=== PATIENT | female | born 1960 | race Caucasian/White ===

== ENCOUNTER → 2020-09-12 12:08 | Outpatient (BNVA) | payer BC, SELFPAY | PROVIDERS: Family Provider Nurse Practitioner Family; Referring Provider Family Medicine; Visit Provider Orthopaedic Surgery | DX: Z01.812 Encounter for preprocedural laboratory examination (principal); Z20.828 Contact with and (suspected) exposure to other viral communicable diseases; S52.021A Displaced fracture of olecranon process without intraarticular extension of right ulna, initial encounter for closed fracture | CPT/HCPCS: 87635 ==

== ENCOUNTER 2020-09-16 11:03 | Day surgery (SDC) | payer BC, SELFPAY ==
[2020-09-13 10:37] VITALS: BMI 20.1
[2020-09-16] VITALS (10 sets, daily range): BP systolic 118–173; BP diastolic 41–92; PULSE 58–97; RESP 16–20; TEMP 36.1–37.2; O2SAT 94–100
--- NOTE | 2020-09-16 | SCC_ITS ---
Procedure Done: ORIF right olecranon fracture 83.6 seconds of fluoroscopic guidance, for a cumulative dose of 1.54 mGy, was provided to Dr. Moy by the radiology department. C-arm images of the right elbow were saved for the patient's permanent record. [facility]
--- NOTE | 2020-09-16 | XR_ITS ---
WS: [id number] INTRAOPERATIVE TECHNIQUE: 5 Spot fluoroscopic images for intraoperative purposes. FLUOROSCOPY TIME: 83.6 seconds CLINICAL INFORMATION: RIGHT OLECRONON FRACTURE COMPARISON: None. FINDINGS: Intraoperative changes plate and screw fixation proximal ulna and olecranon. XR/XR elbow RT min 3V* [id number] IMPRESSION: Images obtained for intraoperative purposes.
[2020-09-16] MEDS: sodium chloride 0.9% 1,000 ML 30 ML IV (11:42)
--- NOTE | 2020-09-16 12:29 | ANES.PREANE2 ---
Pre-Anesthetic Assessment Pre-Anesthetic Assessment: Height/Weight: Height 1.52 m Weight 46.72 kg Temp Pulse Resp BP Pulse Ox 98.1 F 58 L 18 147/78 95 09/16/20 12:06 09/16/20 12:06 09/16/20 12:06 09/16/20 12:06 09/16/20 12:06 Preop Diagnosis: right olecranon fx Proposed Procedure: Operation Date: 09/16/20 13:40 Proposed Procedures p ORIF Elbow 20894 S52.021A(Right) - Georges Moy, DO Was Beta Saurabh taken within 24 hours: N/A Last intake: Intake Last Liquid Date 09/15/20 Last Liquid Time 23:00 Last Solid Date 09/15/20 Last Solid Time 23:00 Social: Social History: Tobacco and No alcohol Exam: Pre-Anes Outpt Exam: alert, oriented x 3, clear to auscultation bilaterally and regular rate & rhythm Airway: Submandibular: WNL Cervical ROM: WNL MP: 1 Dentition: False History/ROS: No significant complaints Pulmonary: Pulmonary: COPD CV/HEM: CV/HEM: None reported : : None reported Hepatic: Hepatic: None reported GI: GI: None reported Metabolic: Metabolic: None reported Musc/skel: Comments: Cervical Pain Neuropsych: Neuropsych: None reported Anesthetic Plan: ASA status: 3 Anesthesia: General Meds/Allergies Current Medications: Current Medications Generic Name Dose Route Start Last Admin Trade Name Freq PRN Reason Stop Dose Admin Sodium Chloride 1,000 mls @ 30 ml s/hr 09/16/20 11:15 09/16/20 11:42 Sodium Chloride 0.9% IV 09/17/20 11:14 30 mls/hr .Q24H CALVIN Administration PFSH Anesthesia PFSH: Social History Smoking and tobacco status: former smoker Alcohol intake: never Sexually active: Yes Current gender identity: Female Data Anesthesia Cardiac Studies: No Data to Display
--- NOTE | 2020-09-16 12:44 | W.PM.OPSUD ---
Surgery/Procedure H&P Update DATE OF PROCEDURE: September 16, 2020 DATE H&P PERFORMED: 09/11/20 H&P UPDATE INFORMATION: I have reviewed H&P completed within last 30 days, I have examined patient prior to procedure and No changes to prior documentation PREOP DIAGNOSIS: right olecranon fx PLANNED PROCEDURE: Operation Date: 09/16/20 13:40 Proposed Procedures p ORIF Elbow 12798 S52.021A(Right) - Georges Moy DO
--- NOTE | 2020-09-16 14:15 | PM.OP ---
Operative Report Date of procedure: September 16, 2020 Pre-op Diagnosis: right olecranon fx Post-op diagnosis: same Procedure Done: ORIF right Olecranon fracture
--- NOTE | 2020-09-16 14:16 | PM.OP ---
Operative Report Date of procedure: September 16, 2020 Pre-op Diagnosis: right olecranon fx Procedure Done: ORIF right olecranon fracture Surgeon: Georges Moy Anesthesia: General Estimated blood loss (mL): 5 Condition: stable Disposition: PACU Procedure: ORIF right olecranon fracture Patient is brought to the operative suite after undergoing his he is placed in lateral decubitus position all areas impingement well-padded patient's prepped and draped normal sterile fashion. Incision is made over the right posterior aspect of the elbow. Olecranon was exposed it had a left comminuted pieces but there was one major piece. Was able to reduce this back to the distal piece. Once this was reduced to K wires used to hold in position then the Aarti olecranon plate was placed 2 screws were placed proximal to screws placed distal. Fiber wire was weaved to try to hold the remaining comminuted pieces together. Wounds irrigated AP lateral fluoroscopy ensured that the fracture and hardware improved position wounds were irrigated and patient was closed in a layered fashion with 0 Vicryl 2-0 Vicryl and nylon suture sterile dressings applied patient placed in a posterior splint transferred to the PACU in stable condition.
[2020-09-16] MEDS: meperidine 50 mg/mL INJ 12.5 MG IVP (14:51)
[2020-09-16] MEDS: HYDROcodone-acetaminophen 5-325 mg Tablet 1 TAB PO (15:10)
--- NOTE | 2020-09-16 16:59 | ANE.PACU2 ---
Inpatient post-anesthesia follow up: Airway intact: Yes Vital signs: Temperature 98.1 F Pulse Rate 80 Respiratory Rate 16 Blood Pressure 129/66 Pulse Oximetry 94 Oxygen Delivery Me thod Room Air Oxygen Flow Rate 6 Fraction of Inspir ed Oxygen Hydration adequate: Yes Nausea and vomiting: No Pain level: 3 Mental status: Baseline
== END 2020-09-16 16:00 | disposition home or self-care (01) ==
PROVIDERS: Visit Provider Orthopaedic Surgery
PROC: (CPT 24685; principal; 2020-09-16 13:40)
DX: S52.021A Displaced fracture of olecranon process without intraarticular extension of right ulna, initial encounter for closed fracture (principal); X58.XXXA Exposure to other specified factors, initial encounter; J44.9 Chronic obstructive pulmonary disease, unspecified; Z87.891 Personal history of nicotine dependence
CPT/HCPCS: 24685; 73080; 76000; 96365; C1713; J0360; J0690; J1100; J2175; J2405; J2704; J3010; J3490; J7030

== ENCOUNTER 2020-10-30 04:12 | Emergency (ER) | payer BC, SELFPAY ==
[2020-10-30 04:13] VITALS: BP 169/101; PULSE 72; RESP 16; TEMP 36.4; O2SAT 94; BMI 19.5
--- NOTE | 2020-10-30 04:28 | XR_ITS ---
WS: [id number] Lumbar spine, portable views, AP, L5-S1 spot, lateral, and both obliques, 10/30/2020 Clinical Data: pain Comparison: Lumbar spine, 06/19/2010. Findings: No compression fractures or subluxation is seen. There is degenerative disc narrowing at L5-S1.. The transverse processes and SI joints are normal. The oblique films demonstrate no spondylolysis.. XR/XR lumbar spine min 4V [id number] Impression: 1. Degenerative disc disease at L5-S1. 2. No spondylolysis.
--- NOTE | 2020-10-30 04:28 | XR_ITS ---
WS: [id number] Pelvis, AP portable supine, 10/30/2020 Clinical Data: pain Comparison: Pelvis, 04/29/2010. Findings: No fractures or dislocations are seen. The SI joints and pubic symphysis are intact. The soft tissues are not remarkable. No bone destruction or erosion is seen. XR/XR pelvis 1-2V* [id number] Impression: Negative for fracture.
--- NOTE | 2020-10-30 04:29 | W.ED.GENADLT ---
HPI - General Adult General: Chief complaint: Back Pain/Injury Stated complaint: GROIN PAIN Time Seen by Provider: 10/30/20 04:16 Source: patient Limitations: no limitations History of Present Illness: HPI narrative: Complaining of low back pain that radiates into the right groin and thigh. Denies any injury. Denies any fever. Denies any other problems with the right lower extremity except for occasional tingling. She has no tingling now. She is ambulatory. She states she recently had right elbow surgery on September 16. Onset (ago): day(s) (3) Location: back and right Radiation: other (Radiates from the low back to right thigh) Severity: moderate Quality: aching and sharp Pain Consistency: constant Relieving factors: none Exacerbating factors: none Associated symptoms: Reports other (No abdominal pain. No chest pain. No shortness of breath. No headache.); Deny chest pain, dyspnea, fevers/chills, headache(s), malaise, nausea, rash, palpitations, vomiting or weakness Treatments prior to arrival: other (Took hydrocodone at home without much relief.) Review of Systems Const: Denies: malaise Eyes: Denies: change in vision ENMT: Denies: throat pain Card: Denies: chest pain or palpitations Resp: Denies: dyspnea or wheezing GI: Denies: abdominal pain, nausea or vomiting : Denies: flank pain Musc: Reports: back pain and extremity pain; Denies: neck pain, extremity swelling or joint pain Skin/Breast: Denies: rash Neuro: Denies: headache(s) or numbness in extremities Psych: Denies: anxiety [place]/Lymph: Denies: enlarged lymph nodes PFSH ED PFSH: Social History Smoking and tobacco status: former smoker Alcohol intake: never Sexually active: Yes Current gender identity: Female Physical Exam Const: COMMON NORMALS: no acute distress, patient oriented x3, no limitations and well nourished EXAM LIMITATIONS: altered mental status GENERAL APPEARANCE: cooperative HENMT: COMMON NORMALS: normocephalic and atraumatic HEAD & SCALP: normocephalic and atraumatic FACE & SINUS: normal facial exam Eye: COMMON NORMALS: EOMs intact bilaterally Neck/C-Spine: COMMON NORMALS: full ROM, no lymphadenopathy, supple and no meningeal signs GENERAL: Yes normal visual inspection Lymph: LYMPHATIC: no lymphadenopathy noted Chest: COMMONS NORMALS: normal inspection of the chest and normal palpation of entire chest wall CHEST: No Ecchymosis present and No rash Resp: COMMON NORMALS: normal respiratory effort, No retractions and clear to auscultation bilaterally EFFORT & INSPECTION: No respiratory distress AUSCULTATION: clear to auscultation bilaterally Cardio: COMMON NORMALS: regular rate, regular rhythm and Peripheral pulses 2+ throughout JUGULAR VENOUS DISTENTION: no JVD RATE: regular rate RHYTHM: regular rhythm PERIPHERAL PULSES: Peripheral pulses 2+ throughout GI: COMMON NORMALS: Normal to inspection, nondistended, normoactive bowel sounds present and non-tender : COMMON NORMALS: Yes no CVA tenderness BLADDER/KIDNEY EXAM: Yes no CVA tenderness and No CVA tenderness Back/Pelvis: COMMON NORMALS: no CVA tenderness GENERAL BACK: No CVA tenderness LUMBAR SPINE/LOWER BACK: Yes lumbar ROM normal, No pain with ROM and Yes lumbar spinal tenderness (Mild reproducible pain along the paraspinous muscles of the lower L/S) PELVIS: Yes buttocks normal OTHER: Reproducible pain with palpation along the right lower lumbar spine paraspinous muscles right sacroiliac joint and right groin and thigh. No evidence of induration, cellulitis, rash, zoster, or cyanosis. No clubbing or edema. Right femoral pulse right posterior tibial and right dorsalis pedis pulses are all normal. Normal capillary refill. Nursing assessment reviewed. Extremity: COMMON NORMALS: normal to inspection, full ROM and capillary refill normal Neuro: COMMON NORMALS: patient oriented x3, CN's II-XII intact bilaterally, no focal motor deficits and no sensory deficits noted MENINGEAL SIGNS: Yes no meningeal signs Psych: COMMON NORMALS: mental status grossly normal and Normal thought process present THOUGHT PROCESS: Normal thought process present Skin: COMMON NORMALS: no rashes or lesions noted and no wounds GENERAL SKIN EXAM: no rashes or lesions noted Course Vital Signs: Vital signs: Vital Signs Temperature 97.5 F L 10/30/20 04:13 Pulse Rate 72 10/30/20 04:13 Respiratory Rate 16 10/30/20 04:13 Blood Pressure 169/101 10/30/20 04:13 Pulse Oximetry 94 10/30/20 04:13 MDM - General Adult MDM Narrative: Medical decision making narrative: Nursing assessment reviewed 0500: Blood pressure 200/87. Patient still has pain in her lower back. Imaging Data^: Xray Ortho: Attestation: I personally reviewed and interpreted this imaging study as follows: My impression: Lumbar spine series shows degenerative disc disease at L4-L5 level likely causing her sciatica. Pelvis x-ray appears normal. Critical Care Time Critical Care Time: Critical Care Time: Yes Total Critical Care Time: 35 Attestation: Care of hypertensive urgency with IV labetalol Discharge Plan Discharge Patient Disposition: Home Clinical Impression: Hypertensive urgency, Lumbar radiculopathy Sciatica Qualifiers: Laterality: right Qualified Code(s): M54.31 - Sciatica, right side Degenerative joint disease (DJD) of lumbar spine Qualifiers: Spinal osteoarthritis complication: with radiculopathy Qualified Code(s): M47.26 - Other spondylosis with radiculopathy, lumbar region Condition: Stable Prescriptions: New oxycodone 5 mg capsule 5 mg PO Q6H PRN (Reason: pain) Qty: 10 RF: 0 lisinopril 10 mg tablet 10 mg PO DAILY Qty: 30 RF: 0 No Action albuterol sulfate 90 mcg/actuation HFA aerosol inhaler See Rx Instructions .ROUTE .COMPLEX Qty: 6.7 RF: 0 hydrocodone-acetaminophen 5-325 mg tablet 1 tab PO Q6H PRN (Reason: pain) 7 Days Qty: 60 RF: 0 hydrocodone-acetaminophen 5-325 mg tablet 1 - 2 tab PO .Q4-6H PRN (Reason: pain) 7 Days Qty: 40 RF: 0 ibuprofen 400 mg tablet 400 mg PO Q6H RF: 0 Discharge Orders: Discharge ED (Routine); Ordered 10/30/20 Ordered By: Manjeet Underwood Discharge Diet: Advance as tolerated Discharge Activity: Resume usual activity Patient Instructions: Opioid Safety Activity Restrictions/Additional Instructions: Follow-up with your family doctor soon for recheck.Do not combine hydrocodone and oxycodone. Coding Level of Care Code ED [employer] [facility] Exam Comprehensive
[2020-10-30] MEDS: labetalol 5 mg/mL SDV 20mL 10 MG IVP (05:20)
[2020-10-30] MEDS: HYDROmorphone 1 mg/mL INJ 1 mL 0.5 MG IVP (05:21)
[2020-10-30 05:24] VITALS: BP 200/87; PULSE 74; RESP 19; O2SAT 94
[2020-10-30 05:29] VITALS: BP 141/78; PULSE 62; RESP 19; O2SAT 96
[2020-10-30 06:46] VITALS: BP 171/87; PULSE 66; RESP 18; O2SAT 100
== END 2020-10-30 06:46 | disposition home or self-care (01) ==
PROVIDERS: Emergency Provider Family Medicine
DX: I16.0 Hypertensive urgency (principal); M54.16 Radiculopathy, lumbar region; M54.31 Sciatica, right side; M47.26 Other spondylosis with radiculopathy, lumbar region; Z87.891 Personal history of nicotine dependence
CPT/HCPCS: 72110; 72170; 96374; 96375; 99284; J1170; J3490

== ENCOUNTER → 2020-11-04 08:19 | Outpatient (BNVA) | payer BC, SELFPAY | PROVIDERS: Visit Provider Registered Nurse | DX: R39.9 Unspecified symptoms and signs involving the genitourinary system (principal) | CPT/HCPCS: 81000; 87070; 87205 ==

== ENCOUNTER → 2020-11-07 14:56 | Outpatient (BNVA) | payer BC, SELFPAY | PROVIDERS: Visit Provider Orthopaedic Surgery | DX: Z48.89 Encounter for other specified surgical aftercare (principal) | CPT/HCPCS: 73080 ==

== ENCOUNTER → 2020-12-04 10:49 | Outpatient (BNVA) | payer BC, SELFPAY | PROVIDERS: PCP Registered Nurse; Visit Provider Registered Nurse | DX: B37.3 Candidiasis of vulva and vagina (principal); N76.4 Abscess of vulva; N76.0 Acute vaginitis; B96.89 Other specified bacterial agents as the cause of diseases classified elsewhere | CPT/HCPCS: 87070; 87205 ==

== ENCOUNTER → 2020-12-19 13:59 | Outpatient (BNVA) | payer BC, SELFPAY | PROVIDERS: PCP Registered Nurse; Visit Provider Orthopaedic Surgery | DX: Z48.89 Encounter for other specified surgical aftercare (principal) | CPT/HCPCS: 73080 ==

== ENCOUNTER → 2021-02-20 12:45 | Outpatient (BNVA) | payer BC, SELFPAY | PROVIDERS: PCP Registered Nurse; Visit Provider Obstetrics & Gynecology | DX: N75.0 Cyst of Bartholin's gland (principal) | CPT/HCPCS: 87635 ==

== ENCOUNTER 2021-02-26 05:36 | Day surgery (SDC) | payer BC, SELFPAY ==
[2021-02-24 12:04] VITALS: BMI 20.1
--- NOTE | 2021-02-24 12:16 | ANES.PREANE2 ---
Pre-Anesthetic Assessment Pre-Anesthetic Assessment: Height/Weight: Height 1.52 m Weight 46.72 kg Preop Diagnosis: right olecranon fx Proposed Procedure: Operation Date: 02/26/21 07:10 Proposed Procedures p Bartholin's Cyst Excision [id number] n75.0(Not Applicable) - Scott Kiser MD Familial anesthetic complications: None Was Beta Saurabh taken within 24 hours: N/A Was Clonidine taken within 24 hours: N/A Social: Social History: No alcohol and No tobacco Comment: former smoker Exam: Pre-Anes Outpt Exam: alert, oriented x 3, clear to auscultation bilaterally and regular rate & rhythm Airway: Cervical ROM: WNL MP: 1 Dentition: False Pulmonary: Comments: allergies Anesthetic Plan: ASA status: 2 Anesthesia: General Risk of > 500 ml blood loss (7ml/kg in children): No PFSH Anesthesia PFSH: Family History Mother Bleeding disorder Brain cancer Father Hypertension Heart disease Brother Hypertension Sister Uterine cancer, Onset Age: 55 Ovarian cancer, Onset Age: 55 Grandfather Colon cancer paternal great, 90's Denies family history of Diabetes Clotting disorder Hyperlipidemia Breast cancer Anesthesia complication Thyroid condition Stroke Social History Smoking and tobacco status: former smoker Quit status (tobacco): has quit using tobacco Year quit tobacco: 2019 Alcohol intake: never Other details last substance use: marijuana use in teens and 20's Data Anesthesia Cardiac Studies: No Data to Display
[2021-02-26 06:13] VITALS: BP 176/89; PULSE 57; RESP 18; TEMP 36.4; O2SAT 98
[2021-02-26] MEDS: sodium chloride 0.9% 1,000 ML 30 ML IV (06:46)
[2021-02-26] MEDS: scopolamine 1.5 Patch 1 PATCH TRANSDERMA (06:49)
--- NOTE | 2021-02-26 07:00 | W.PM.OPSUD ---
Surgery/Procedure H&P Update DATE OF PROCEDURE: February 26, 2021 DATE H&P PERFORMED: 02/24/21 H&P UPDATE INFORMATION: I have reviewed H&P completed within last 30 days, I have examined patient prior to procedure and No changes to prior documentation PREOP DIAGNOSIS: Bartholin gland cyst PLANNED PROCEDURE: Operation Date: 02/26/21 07:45 Proposed Procedures p Bartholin's Cyst Excision [id number] n75.0(Not Applicable) - Scott Kiser MD
[2021-02-26 11:39] VITALS: BP 141/97; PULSE 86; RESP 25; TEMP 36.4; O2SAT 100
[2021-02-26 11:40] VITALS: BP 109/93; PULSE 85; RESP 23; O2SAT 100
[2021-02-26 11:45] VITALS: BP 109/93; PULSE 77; RESP 14; O2SAT 100
--- NOTE | 2021-02-26 11:46 | PM.OP ---
Operative Report Date of procedure: February 26, 2021 Pre-op Diagnosis: Right Bartholin gland cyst Post-op Findings: Right Bartholin gland cyst Procedure Done: Right Bartholin gland excision. Specimens removed/disposition: Right Bartholin gland cyst Pathology: Right Bartholin gland Surgeon: Scott Kiser MD Anesthesia: Other (LMA) Estimated blood loss (mL): 10 IV fluids (mL): 800 Urine output (mL): 100 Condition: stable Disposition: PACU Procedure: The patient was brought to the operating room and given adequate general anesthesia. She was examined confirming the presence of the right Bartholin?s cyst. The bimanual examination was unremarkable. There were no other vulvar lesions. She was then prepped and draped in the usual manner. The cyst was outlined and noted. Sterile gauze was placed in the vagina to prevent any contamination. The large cyst was then incised outside of the hymenal ring on the vaginal mucosa. Cultures were obtained. The incision was then enlarged to approximately 3.5 cm, and the purulent chocolate drainage was noted. The cyst was then liberally irrigated with the use of a syringe and normal saline. There were no loculations. Minor inflammatory changes were noted involving the cyst wall. The cyst was sent to pathology. At this time, the elliptical incision was then sutured in the classical fashion, suturing the mucosal lining of the cyst to the skin with interrupted 3-0 Vicryl suture at strategic intervals approximately 0.5 cm apart. Good hemostasis was achieved. The cyst was further irrigated with the use of normal saline. Good hemostasis was present, and no further procedures were performed. All instruments were removed. All gauze packing was removed from the vagina and the vagina irrigated. No further procedures were performed. The patient was stable at all times. The patient was returned to the Same Day Surgical Unit in stable and satisfactory condition.
[2021-02-26 11:50] VITALS: BP 141/97; PULSE 74; RESP 19; TEMP 36.4; O2SAT 99
[2021-02-26 12:16] VITALS: BP 118/83; PULSE 69; RESP 18; O2SAT 98
[2021-02-26] MEDS: HYDROcodone-acetaminophen 5-325 mg Tablet 1 TAB PO (12:40)
--- NOTE | 2021-02-26 13:40 | ANE.PACU2 ---
Inpatient post-anesthesia follow up: Airway intact: Yes Vital signs: Temperature 97.6 F Pulse Rate 69 Respiratory Rate 18 Blood Pressure 118/83 Pulse Oximetry 98 Oxygen Delivery Me thod Room Air Oxygen Flow Rate Fraction of Inspir ed Oxygen Hydration adequate: Yes Nausea and vomiting: No Pain level: 2 Mental status: Baseline
== END 2021-02-26 12:45 | disposition home or self-care (01) ==
PROVIDERS: PCP Registered Nurse; Visit Provider Obstetrics & Gynecology
PROC: (CPT 56740; principal; 2021-02-26 07:45)
DX: N75.0 Cyst of Bartholin's gland (principal); Z87.891 Personal history of nicotine dependence
CPT/HCPCS: 56740; 88304; 96365; J0690; J1100; J1885; J2405; J2704; J3010; J3490; J7030

== ENCOUNTER → 2023-04-06 08:47 | Outpatient (BNVA) | payer BC, MEDICARE, SELFPAY | PROVIDERS: PCP Registered Nurse; Visit Provider Nurse Practitioner Family | DX: I10 Essential (primary) hypertension (principal); J06.9 Acute upper respiratory infection, unspecified | CPT/HCPCS: 80053; 80061 ==

== ENCOUNTER 2024-04-12 12:49 | Outpatient (CLI) | payer MEDICARE, SELFPAY ==
--- NOTE | 2024-04-12 13:30 | MM_ITS ---
WS: [id number] BILATERAL 3D TOMOSYNTHESIS DIGITAL SCREENING MAMMOGRAPHY WITH CAD CLINICAL INFORMATION: Z12.39 - Encounter for other screening for malignant neop... HISTORY: Screening mammogram. No current complaints. COMPARISON: Baseline TECHNIQUE: Bilateral CC and MLO views. FINDINGS: The breasts are composed of heterogeneous fibroglandular density tissue, which can limit the detectio n of small underlying mass lesions. No suspicious mass, asymmetry, calcifications, or architectural d istortion. No evidence of malignancy. MM/MM [facility] tomosynthesis [id number] IMPRESSION: DENSITY:The breasts are heterogeneously dense, which may obscure small masses. BI-RADS: 1 - Negative FOLLOW UP: 1 Year Follow-up Recommend return to annual screening mammography.
--- NOTE | 2024-04-12 14:00 | XR_ITS ---
WS: [id number] DEXA (DUAL ENERGY X-RAY ABSORPTIOMETRY) Bone mineral density was performed using a Novaled machine. HISTORY: M81.0 - Age-related osteoporosis without current patholog... COMPARISON: None available. Lumbar spine BMD (L1-L4): 1.002 g/cm2 T score: -1.5 Z score: 0.7 Total hip BMD: Left: 0.482 g/cm2. T score: -4.2 Z score: -2.5 Right: 0.438 g/cm2. T score: -4.5 Z score: -2.9 10 year probability of a major osteoporotic fracture is 29.6%. XR/XR DEXA axial skeleton* [id number] IMPRESSION: OSTEOPOROSIS based upon the WHO classification for females.
== END 2024-04-12 12:50 | disposition home or self-care (01) ==
LOC: RAD 12:51
PROVIDERS: PCP Registered Nurse; Visit Provider Nurse Practitioner Family
DX: Z12.31 Encounter for screening mammogram for malignant neoplasm of breast (principal); M81.0 Age-related osteoporosis without current pathological fracture
CPT/HCPCS: 77063; 77067; 77080

== ENCOUNTER 2024-05-01 12:26 | Outpatient (CLI) | payer MEDICARE, SELFPAY ==
--- NOTE | 2024-05-01 12:45 | CT_ITS ---
WS: [id number] LDCT LUNG CANCER SCREENING HISTORY: Z12.2 - Encounter for screening for malignant neoplasm of... TECHNIQUE: Axial imaging performed from the apices to 1 cm below the costophrenic angles. Coronal and sagittal reformats are submitted with axial MIP series. All CT scans at [facility] use at least one of these dose optimization techniques: automated exposure control; mA and/or kV adjustment per patient size (includes targeted exams where dose is matched to clinical indication); or iterativ e reconstruction. DLP: 41.41 mGy.cm DIvol: Mean CTDIvol: 0.60 (mGy) COMPARISON: None available. Diagnostic quality: Satisfactory Lungs: Marked pulmonary hyperexpansion. Subsolid nodule LEFT lower lobe with a mean diameter of 12 mm . RIGHT apical pleural nodularity. Mild pleural tagging with a RIGHT apical 6 mm nodule. Heart: Normal size heart with no pericardial effusion.. Other findings: Hilar regions are difficult to evaluate without IV contrast. Lymph nodes would be dif ficult to exclude. Mild atherosclerosis and ectasia thoracic aorta. Mildly dilated pulmonary artery. Healed rib fractures posterior lateral RIGHT thorax. There is a single sclerotic focus in the LEFT ri b, probably the seventh. May be a benign bone island. CT/CT lung screening [id number] IMPRESSION: LUNG-RADS: 4A-Probably Suspicious FOLLOW UP: 3 Month LDCT OTHER FINDINGS (S MODIFIER): None. Recommend follow-up chest CT in 3 months with IV contrast to better evaluate th e hilum. The subsolid nodule in the LEFT lower lobe will need exterminator evaluat ion to exclude low-grade neoplasm.
== END 2024-05-01 12:27 | disposition home or self-care (01) ==
LOC: RAD 12:28
PROVIDERS: PCP Registered Nurse; Visit Provider Nurse Practitioner Family
DX: Z12.2 Encounter for screening for malignant neoplasm of respiratory organs (principal); R91.8 Other nonspecific abnormal finding of lung field
CPT/HCPCS: 71271